=== PATIENT | female | born 1970 | race Caucasian/White ===

== ENCOUNTER → 2016-07-04 | Outpatient (CLI) | payer BC | LOC: MAMO 06-23 09:30 | DX: N63 Unspecified lump in breast (principal); R92.8 Other abnormal and inconclusive findings on diagnostic imaging of breast | CPT/HCPCS: G0206 ==

== ENCOUNTER → 2016-12-29 | Outpatient (CLI) | payer BC | LOC: KOH-I 12-08 09:30 | DX: R10.11 Right upper quadrant pain (principal); K76.0 Fatty (change of) liver, not elsewhere classified | CPT/HCPCS: 76705 ==

== ENCOUNTER 2020-09-21 19:27 | Emergency (ER) | payer BC ==
[2020-09-21 21:42] LABS: HEMOGLOBIN 14.6 gm/dl (12.3-15.3); RED BLOOD COUNT 4.92 M/UL (4.00-5.10); WHITE BLOOD COUNT 10.8 K/UL (4.5-11.0)
[2020-09-21 22:16] LABS: BUN/CREATININE RATIO 18 (0-10)
[2020-09-21] MEDS ORDERED: PROTONIX40 MG PO (23:21)
[2020-09-21] MEDS ORDERED: ZOFRAN ODT 4 MG4 MG SL (23:21)
[2020-09-21] MEDS ORDERED: K-DUR TAB 20 M20 MEQ PO (23:21)
[2020-09-23 11:15] LABS: HBSAG SCREEN Negative (Negative); HEP A AB, IGM Negative (Negative); HEP B CORE AB, IGM Negative (Negative); HEP C VIRUS AB <0.1 (0.0-0.9)
== END 2020-09-21 23:30 | disposition home or self-care (01) ==
LOC: ER1 19:27
PROVIDERS: Emergency Medicine; Physician Assistant
DX: R10.9 Unspecified abdominal pain (principal); E87.6 Hypokalemia; R79.89 Other specified abnormal findings of blood chemistry; F17.210 Nicotine dependence, cigarettes, uncomplicated; Z79.899 Other long term (current) drug therapy
CPT/HCPCS: 80053; 80074; 81001; 82150; 83690; 84703; 85025; 99284; Q9967

== ENCOUNTER → 2020-09-23 | Outpatient (CLI) | payer BC ==
[~2020-09-23] MED LIST: K-DUR TAB 20 M20 MEQ PO; PROTONIX40 MG PO; ZOFRAN ODT 4 MG4 MG SL
== END ==
LOC: US 08:00
DX: R10.9 Unspecified abdominal pain (principal); K76.0 Fatty (change of) liver, not elsewhere classified
CPT/HCPCS: 76705

== ENCOUNTER → 2020-09-27 | Outpatient (CLI) | payer BC ==
[2020-09-27 11:20] LABS: HEMOGLOBIN 15.1 gm/dl (12.3-15.3); RED BLOOD COUNT 5.05 M/UL (4.00-5.10); WHITE BLOOD COUNT 9.6 K/UL (4.5-11.0)
[2020-09-27 12:09] LABS: BUN/CREATININE RATIO 14 (0-10)
== END ==
LOC: LAB 10:01
PROVIDERS: Nurse Practitioner Family
DX: R10.11 Right upper quadrant pain (principal); R74.8 Abnormal levels of other serum enzymes
CPT/HCPCS: 36415; 74018; 80053; 85025

== ENCOUNTER → 2020-09-28 | Outpatient (CLI) | payer BC ==
[2020-09-28 09:26] LABS: HEMOGLOBIN 14.9 gm/dl (12.3-15.3); RED BLOOD COUNT 4.98 M/UL (4.00-5.10); WHITE BLOOD COUNT 10.7 K/UL (4.5-11.0)
[2020-09-28 09:51] LABS: BUN/CREATININE RATIO 15 (0-10)
== END ==
LOC: LAB 08:43
PROVIDERS: Nurse Practitioner Family
DX: R06.02 Shortness of breath (principal); R10.11 Right upper quadrant pain; R74.8 Abnormal levels of other serum enzymes
CPT/HCPCS: 36415; 80053; 85025; 85379

== ENCOUNTER → 2020-09-28 | Outpatient (CLI) | payer BC | LOC: CT 14:30 | DX: R07.1 Chest pain on breathing (principal); R79.89 Other specified abnormal findings of blood chemistry; R06.02 Shortness of breath; J98.11 Atelectasis | CPT/HCPCS: Q9967 ==

== ENCOUNTER → 2020-09-29 | Outpatient (CLI) | payer BC | LOC: NM 13:40 | DX: R10.11 Right upper quadrant pain (principal); R74.8 Abnormal levels of other serum enzymes | CPT/HCPCS: 78226; A9537 ==

== ENCOUNTER → 2021-02-24 | Outpatient (CLI) | payer BC | LOC: KOH-I 13:26 | DX: R05.9 Cough, unspecified (principal); J98.4 Other disorders of lung | CPT/HCPCS: 71046 ==

== ENCOUNTER → 2021-11-09 | Outpatient (CLI) | payer BC | LOC: KOH-I 13:23 | DX: R05.3 Chronic cough (principal) | CPT/HCPCS: 71046 ==

== ENCOUNTER → 2021-12-27 | Outpatient (CLI) | payer BC | LOC: HEART 5 08:59 | DX: R05.3 Chronic cough (principal) | CPT/HCPCS: 94060; 94729 ==